=== PATIENT | male | born 2000 | race Caucasian/White ===

== ENCOUNTER 2020-05-04 16:39 | Emergency (ER) | payer SELFPAY ==
[2020-05-04 16:40] VITALS: BP 142/89; PULSE 83; RESP 18; TEMP 36.5; O2SAT 95; BMI 34.8
--- NOTE | 2020-05-04 16:43 | ECG_ITS ---
[facility] Test Date: 2020-05-04 Pat Name: Puma Falk Department: Room: Gender: Male Manager Cardiovascular: : 2000 Requested By: Meagan Galvez Order Number: [id number] Goodwin MD: Carmela Cortez M.D. Measurements Intervals [place] Rate: 80 P: 35 [place]: 165 QRS: -20 QRSD: 106 T: 32 QT: 361 QTc: 418 Interpretive Statements SINUS RHYTHM No previous ECG available for comparison Electronically Signed On 05-04-2020 17:21:33 CDT by Carmela Cortez M.D. [id number]
--- NOTE | 2020-05-04 16:43 | CTR_ITS ---
PROCEDURE INFORMATION: Exam: CT Head Without Contrast Exam date and time: 05/04/2020 4:49 PM Age: 20 years old Clinical indication: Condition or disease; Convulsions or seizures; Unspecified; Patient HX: New onset seizures; Additional info: [id number] onset [id number] TECHNIQUE: Imaging protocol: Computed tomography of the head without contrast. Radiation optimization: All CT scans at this facility use at least one of these dose optimization techniques: automated exposure control; mA and/or kV adjustment per patient size (includes targeted exams where dose is matched to clinical indication); or iterative reconstruction. COMPARISON: No relevant prior studies available. RADIATION DOSE METRICS: Total DLP (mGy-cm): 856.33 FINDINGS: Brain: Normal. No hemorrhage. Unremarkable white matter. No mass effect. Ventricles: Normal. No ventriculomegaly. Bones/joints: Unremarkable. No acute fracture. Sinuses: Visualized sinuses are unremarkable. No fluid levels. Mastoid air cells: Visualized mastoid air cells are well aerated. Soft tissues: Density in the right frontal scalp could represent a contusion or scar. CT/CT head wo con* [id number] IMPRESSION: No acute intracranial abnormality. Radiation Dose CTDIVOL = (mGy): DLP = 856.33 (mGy-cm)
--- NOTE | 2020-05-04 16:45 | XRR_ITS ---
PROCEDURE INFORMATION: Exam: XR Chest, 1 View Exam date and time: 05/04/2020 5:08 PM Age: 20 years old Clinical indication: Other: Seizure TECHNIQUE: Imaging protocol: XR of the chest Views: 1 view. COMPARISON: No relevant prior studies available. FINDINGS: Lungs: Unremarkable. No consolidation. Pleural space: Unremarkable. No pleural effusion. No pneumothorax. Heart/Mediastinum: Unremarkable. No cardiomegaly. Bones/joints: Unremarkable. XR/XR chest 1V portable [id number] IMPRESSION: No acute findings.
[2020-05-04 16:47] VITALS: BP 142/89; PULSE 85; RESP 16; O2SAT 97
[2020-05-04 17:00] VITALS: BP 145/99; PULSE 87; RESP 17; O2SAT 98
[2020-05-04 17:00] LABS: Basophils % 0.4 %; Eosinophils # 0.1 10^3/uL (0.0-0.8); Eosinophils % 0.6 %; Hematocrit 47.1 % (42.0-52.0); Hemoglobin 16.2 g/dL (11.7-16.6); Lymphocytes # 1.8 10^3/uL (1.5-6.5); Lymphocytes % 17.4 %; Mean Corpuscular HGB Conc 34.4 g/dL (30.0-36.0); Mean Corpuscular Hemoglobin 28.4 pg (28.0-34.0); Mean Corpuscular Volume 82.5 fL (80-94); Monocytes # 1.1 10^3/uL (0.2-0.9); Monocytes % 10.7 %; Neutrophils % 70.5 %; Nucleated Red Blood Cells % 0 %; Platelet Count 446 10^3/cmm (130-400); Red Blood Count 5.71 10^6/uL (4.1-5.3); Red Cell Distribution Width 12.2 % (12.1-15.1); White Blood Count 10.5 10^3/uL (4.5-13.0)
--- NOTE | 2020-05-04 17:08 | W.ED.SEIZURE ---
HPI - Seizure General: Chief Complaint: Seizure Stated Complaint: SEIZURE Time Seen by Provider: 05/04/20 16:40 Source: patient and EMS Mode of arrival: EMS Limitations: no limitations History of Present Illness: HPI Narrative: Puma is a 21-year-old male who comes in with the complaint of seizures. Patient is alert and oriented x4 at this time but is complaining of being sore and tired. Family witnessed 2 seizures at home, it is unknown how far apart they occurred. When EMS arrived they stated the patient was postictal. Patient denies any alcohol or drugs. Patient denies having any history of seizures in the past. There is a strong family history of seizures. There is a question of whether the patient had a [place] seizure last week but he is uncertain. Patient denies any injuries or ingestions. Other than feeling sore all over he has no focal complaints. Associated symptoms: Reports malaise; Deny chest pain, chills, confusion, diaphoresis, fever(s) or syncope Review of Systems Const: Reports: body aches, fatigue and malaise; Denies: fever(s), chills or diaphoresis Eyes: Denies: change in vision, blurry vision, blind spots, photophobia, eye discharge or eye redness ENMT: Denies: throat pain, odynophagia, hoarseness, swelling of lips/tongue, oral sores, ear or mastoid pain, ear discharge, change in hearing or nasal discharge Card: Denies: chest pain, palpitations, irregular heart rhythm, edema, lightheadedness, syncope, pre-syncope, dyspnea on exertion or orthopnea Resp: Denies: dyspnea, productive cough, non-productive cough, wheezing, hemoptysis or chest congestion GI: Denies: abdominal pain, nausea, vomiting, hematemesis, coffee ground emesis, heartburn, diarrhea, constipation, GI cramping, hematochezia or melena : Denies: flank pain, dysuria, urinary frequency, urinary urgency or hematuria Musc: Denies: neck pain, back pain, extremity pain, extremity swelling, joint pain, joint swelling, joint redness, joint warmth or joint stiffness Skin/Breast: Denies: rash, pruritus, erythema, skin tenderness or jaundice Neuro: Denies: headache(s), numbness in extremities, weakness in extremities, sensory changes, lack of coordination, difficulty walking, dizziness, vertigo, confusion, Slurred speech present or seizure-like activity Carl[place]/Lymph: Denies: easy bruising, easy bleeding, petechiae, purpura or enlarged lymph nodes All/Imm: Denies: urticaria, throat swelling, tongue swelling, facial swelling or acute wheezing PFSH ED PFSH: Medical History (Updated 05/04/20 @ 19:07 by Meagan Moscoso) No pertinent past medical history Surgical History (Updated 05/04/20 @ 17:08 by Meagan Moscoso) No pertinent past surgical history Family History (Updated 05/04/20 @ 17:12 by Meagan Moscoso) Other Seizures Physical Exam Const: COMMON NORMALS: no acute distress, patient oriented x3, no limitations, healthy appearing and well nourished GENERAL APPEARANCE: cooperative, well kempt and well developed HENMT: COMMON NORMALS: normocephalic, atraumatic, external ears normal, EAC's normal and Normal external nose present HEAD & SCALP: normal to inspection, normocephalic and atraumatic FACE & SINUS: normal facial exam and face symmetric NOSE: Normal external nose present and Normal nares present EXTERNAL EAR: Yes external ears normal EXTERNAL AUDITORY CANAL: EAC's normal MOUTH: Normal oral and palatal mucosa present, lip normal and tongue normal Eye: COMMON NORMALS: Equal, round and reactive pupils present and conjunctivae normal GENERAL EYE: appearance normal, both eyes and all related structures ALIGNMENT: Yes alignment normal PERIORBITAL: periorbital findings normal EYELID: eyelids normal CONJUNCTIVA: Yes conjunctivae normal SCLERA: sclerae normal PUPIL: Yes Equal, round and reactive pupils present Neck/C-Spine: COMMON NORMALS: full ROM, no lymphadenopathy, supple, no meningeal signs and no JVD GENERAL: Yes normal visual inspection and Yes trachea midline Chest: COMMONS NORMALS: normal inspection of the chest and normal palpation of entire chest wall Resp: COMMON NORMALS: normal respiratory effort, No retractions and No use of accessory muscles EFFORT & INSPECTION: Yes able to speak in complete sentences and Yes symmetric chest movement AUSCULTATION: no crackles, no rales, no rhonchi and no wheezes Cardio: COMMON NORMALS: no JVD, regular rate, regular rhythm, S1 normal heart sound present and S2 normal heart sound present RATE: regular rate RHYTHM: regular rhythm HEART SOUNDS: S1 normal heart sound present, S2 normal heart sound present, no click, no gallops, no murmurs, no rubs and abnormal split S2 GI: COMMON NORMALS: Soft to palpation and No hepatosplenomegaly present PALPATION: Yes Soft to palpation, No Tenderness to palpation present (GI), No Guarding due to palpation present (GI), No Rigid due to palpation, Yes No hepatosplenomegaly present, No Hernia present, No Palpable mass present and No Pulsatile mass present : COMMON NORMALS: Yes no CVA tenderness BLADDER/KIDNEY EXAM: Yes no CVA tenderness Back/Pelvis: COMMON NORMALS: no CVA tenderness, thoracic and lumbar spine normal to inspection, no thoracic nor lumbar tenderness and thoraco-lumbar ROM normal Extremity: COMMON NORMALS: normal to inspection, full ROM, capillary refill normal, no joint enlargement, no clubbing, cyanosis or edema and no calf tenderness Neuro: COMMON NORMALS: patient oriented x3, CN's II-XII intact bilaterally, moves all extremities, no focal motor deficits and no sensory deficits noted MENINGEAL SIGNS: Yes no meningeal signs SPEECH: speech normal Psych: COMMON NORMALS: mental status grossly normal, Normal thought process present, cooperative, normal affect, speech normal and activity/motor behavior normal APPEARANCE: Yes well kempt SPEECH: Yes normal speech THOUGHT PROCESS: Normal thought process present Skin: COMMON NORMALS: no rashes or lesions noted, turgor normal, no jaundice, no petechiae and no mottling GENERAL SKIN EXAM: no rashes or lesions noted and turgor normal Course Vital Signs: Vital signs: Vital Signs Temperature 97.7 F 05/04/20 16:40 Pulse Rate 77 05/04/20 19:00 Respiratory Rate 16 05/04/20 19:00 Blood Pressure 117/81 05/04/20 19:00 Pulse Oximetry 98 05/04/20 19:00 MDM - Seizure MDM Narrative: Medical decision making narrative: Puma is a 20-year-old male who comes in with new onset seizures. 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 He is admitting that he has been using recently. I see no other sign or symptom to cause the seizures at this time. I have told him though that he needs to follow-up with Dr. Springer and further evaluation will be needed. He understands. He agrees to take the Keppra as I have prescribed that he was loaded with IV Keppra here. At this time he is ready to go home. I did review with him seizure precautions and he understands these. He will follow-up with Dr. Springer and his regular doctor. Lab Data: Labs: Lab Results 05/04/20 05/04/20 05/04/20 Range/Units 16:41 16:41 16:41 WBC 10.5 (4.5-13.0) 10^3/ uL RBC 5.71 H (4.1-5.3) 10^6/u L Hgb 16.2 (11.7-16.6) g/dL Hct 47.1 (42.0-52.0) % MCV 82.5 (80-94) fL MCH 28.4 (28.0-34.0) pg MCHC 34.4 (30.0-36.0) g/dL RDW 12.2 (12.1-15.1) % Plt Count 446 H (130-400) 10^3/c mm MPV 10.0 (7.4-10.4) fL Neut % (Auto) 70.5 % Lymph % (Auto) 17.4 % Mcdowell % (Auto) 10.7 % Eos % (Auto) 0.6 % Baso % (Auto) 0.4 % Neut # (Auto) 7.40 (1.8-8.0) 10^3/u L Lymph # (Auto) 1.8 (1.5-6.5) 10^3/u L Mcdowell # (Auto) 1.1 H (0.2-0.9) 10^3/u L Eos # (Auto) 0.1 (0.0-0.8) 10^3/u L Baso # (Auto) 0.0 (0.0-0.1) 10^3/u L Nucleated RBC % (a uto) 0 % Nucleated RBCs # 0.0 /100WBC PT 12.40 (10.5-13.3) SECO NDS INR 0.90 (0.8-1.2) Sodium 138 (136-145) mmol/L Potassium 3.4 L (3.5-5.1) mmol/L Chloride 99 (98-107) mmol/L Carbon Dioxide 25 (22-29) mmol/L Anion Gap 17.4 (5-19) BUN 8 (6-20) mg/dL Creatinine 0.8 (0.7-1.2) mg/dL GFR Calculation 123.2 (90-130) mL/min Glucose 92 (65-115) mg/dL Calculated Osmolal ity 282 L (285-295) mOsm/k g Calcium 11.0 H (8.5-10.5) mg/dL Magnesium 2.1 (1.7-2.3) mg/dL Total Bilirubin 0.6 (0.15-1.2) mg/dL AST 18 (0-40) U/L ALT 21 (0-41) U/L Alkaline Phosphata se 128 (40-130) IU/L Creatine Kinase 151 (39-308) U/L Total Protein 8.6 (6.6-8.7) g/dL Albumin 5.4 H (3.5-5.2) g/dL Globulin 3.2 (1.3-4.6) g/dL Urine Color (Yellow) Urine Appearance (CLEAR) Urine pH (5-7) Ur Specific Gravit y (1.005-1.030) Urine Protein (Negative) Urine Glucose (UA) (Normal) Urine Ketones (Negative) Urine Blood (Negative) Urine Nitrate (Negative) Urine Bilirubin (NEGATIVE) Urine Urobilinogen (Negative) mg/dL Ur Leukocyte Melvi ase (Negative) Urine RBC (0-2) /hpf Urine WBC (0-5) /hpf Ur Squamous Epith Cells (0-5) Amorphous Sediment Urine Bacteria (NONE) Urine Mucus Urine Opiates Scre en (Negative) ng/mL Ur Barbiturates Sc reen (Negative) ng/mL Ur Phencyclidine S crn (Negative) ng/mL Ur Amphetamines Sc reen (Negative) ng/mL U Benzodiazepines Scrn (Negative) ng/mL Urine Cocaine Scre en (Negative) ng/mL U Marijuana (THC) Screen (Negative) ng/mL Ethyl Alcohol < 10 (0-10) mg/dL 05/04/20 05/04/20 Range/Units 18:04 18:04 WBC (4.5-13.0) 10^3/ uL RBC (4.1-5.3) 10^6/u L Hgb (11.7-16.6) g/dL Hct (42.0-52.0) % MCV (80-94) fL MCH (28.0-34.0) pg MCHC (30.0-36.0) g/dL RDW (12.1-15.1) % Plt Count (130-400) 10^3/c mm MPV (7.4-10.4) fL Neut % (Auto) % Lymph % (Auto) % Mcdowell % (Auto) % Eos % (Auto) % Baso % (Auto) % Neut # (Auto) (1.8-8.0) 10^3/u L Lymph # (Auto) (1.5-6.5) 10^3/u L Mcdowell # (Auto) (0.2-0.9) 10^3/u L Eos # (Auto) (0.0-0.8) 10^3/u L Baso # (Auto) (0.0-0.1) 10^3/u L Nucleated RBC % (a uto) % Nucleated RBCs # /100WBC PT (10.5-13.3) SECO NDS INR (0.8-1.2) Sodium (136-145) mmol/L Potassium (3.5-5.1) mmol/L Chloride (98-107) mmol/L Carbon Dioxide (22-29) mmol/L Anion Gap (5-19) BUN (6-20) mg/dL Creatinine (0.7-1.2) mg/dL GFR Calculation (90-130) mL/min Glucose (65-115) mg/dL Calculated Osmolal ity (285-295) mOsm/k g Calcium (8.5-10.5) mg/dL Magnesium (1.7-2.3) mg/dL Total Bilirubin (0.15-1.2) mg/dL AST (0-40) U/L ALT (0-41) U/L Alkaline Phosphata se (40-130) IU/L Creatine Kinase (39-308) U/L Total Protein (6.6-8.7) g/dL Albumin (3.5-5.2) g/dL Globulin (1.3-4.6) g/dL Urine Color Dark yellow (Yellow) Urine Appearance Hazy A (CLEAR) Urine pH 5 (5-7) Ur Specific Gravit y 1.025 (1.005-1.030) Urine Protein 1+ H (Negative) Urine Glucose (UA) Norm (Normal) Urine Ketones 1+ H (Negative) Urine Blood Neg (Negative) Urine Nitrate Negative (Negative) Urine Bilirubin 1+ H (NEGATIVE) Urine Urobilinogen 1 H (Negative) mg/dL Ur Leukocyte Melvi ase 1+ H (Negative) Urine RBC 0-4 H (0-2) /hpf Urine WBC 55-80 H (0-5) /hpf Ur Squamous Epith Cells 0-4 H (0-5) Amorphous Sediment Not Reportable Urine Bacteria 2+ H (NONE) Urine Mucus 4+ Urine Opiates Scre en Negative (Negative) ng/mL Ur Barbiturates Sc reen Negative (Negative) ng/mL Ur Phencyclidine S crn Negative (Negative) ng/mL Ur Amphetamines Sc reen Positive H (Negative) ng/mL U Benzodiazepines Scrn Negative (Negative) ng/mL Urine Cocaine Scre en Negative (Negative) ng/mL U Marijuana (THC) Screen Positive H (Negative) ng/mL Ethyl Alcohol (0-10) mg/dL Imaging Data^: CXR: My impression: No acute cardiopulmonary findings. CT Head: Radiologist's impression: [place] [address] CT Scan Report Signed Patient: Puma Falk Unit #: [id number] : 2000 Age/Sex: 20 / M ADM Date: 05/04/20 Loc: ER Room/Bed: Attending Dr: Ordering Provider/Ordering MD: Meagan Moscoso DO Date of Service: 05/04/20 Procedure(s): CT head wo con* [id number] Accession Number(s): [id number] Report Number: [id number] PROCEDURE INFORMATION: Exam: CT Head Without Contrast Exam date and time: 05/04/2020 4:49 PM Age: 20 years old Clinical indication: Condition or disease; Convulsions or seizures; Unspecified; Patient HX: New onset seizures; Additional info: [id number] onset TECHNIQUE: Imaging protocol: Computed tomography of the head without contrast. Radiation optimization: All CT scans at this facility use at least one of these dose optimization techniques: automated exposure control; mA and/or kV adjustment per patient size (includes targeted exams where dose is matched to clinical indication); or iterative reconstruction. COMPARISON: No relevant prior studies available. RADIATION DOSE METRICS: Total DLP (mGy-cm): 856.33 FINDINGS: Brain: Normal. No hemorrhage. Unremarkable white matter. No mass effect. Ventricles: Normal. No ventriculomegaly. Bones/joints: Unremarkable. No acute fracture. Sinuses: Visualized sinuses are unremarkable. No fluid levels. Mastoid air cells: Visualized mastoid air cells are well aerated. Soft tissues: Density in the right frontal scalp could represent a contusion or scar. CT/CT head wo con* [id number] IMPRESSION: No acute intracranial abnormality. Radiation Dose CTDIVOL = (mGy): DLP = 856.33 (mGy-cm) Dictated By: George Trevino Signed By: George Trevino Signed Date/Time: 05/04/201714 DD/ 12 EKG Data^: EKG 1: Attestation: I personally reviewed and interpreted this EKG as follows: EKG interpretation date: 05/04/20 EKG interpretation time: 16:47 Interpretation: Normal sinus rhythm at 80 beats a minute, nonspecific interventricular conduction delay. Discharge Plan Discharge Patient Disposition: Home Clinical Impression: New onset seizure Condition: Stable Prescriptions: New Keppra 500 mg tablet 500 mg PO BID 14 Days Qty: 28 RF: 0 Discharge Orders: Discharge Order (Routine); Ordered 05/04/20 Ordered By: Meagan Moscoso Referrals: Sheeba Springer MD [Physician] - 1-3 days Discharge Diet: Advance as tolerated Discharge Activity: Increase activity as tolerated Patient Instructions: New-Onset Seizure in Adults (ED) Activity Restrictions/Additional Instructions: Please return to the ER immediately for any of the signs or symptoms listed on your discharge instruction sheets, worsening/changing of your symptoms, you are not getting better as quickly as expected, or for ANY other cause or concerns. No driving, no working at heights, no tub baths, no swimming alone or anything else that would put you at risk should you have another seizure. Abstain from all alcohol, drugs or anything else that would put you at risk of another seizure. Discharge Date/Time: 05/04/20 19:25 Coding Level of Care Code ED Enrollment Processor for Chg Fwd Exam Comprehensive
[2020-05-04] MEDS: sodium chloride 0.9% 1,000 ML 999 ML IV ×2 (17:09→17:41)
[2020-05-04] MEDS: ondansetron 2 mg/ML SDV 2 mL 4 MG IVP (17:10)
[2020-05-04] MEDS: acetaminophen 500 mg Tablet 1000 MG PO (17:10)
[2020-05-04 17:14] LABS: Alanine Aminotransferase 21 U/L (0-41); Albumin Level 5.4 g/dL (3.5-5.2); Alkaline Phosphatase 128 IU/L (40-130); Anion Gap 17.4 (5-19); Aspartate Amino Transferase 18 U/L (0-40); Blood Urea Nitrogen 8 mg/dL (6-20); Carbon Dioxide 25 mmol/L (22-29); Chloride 99 mmol/L (98-107); Creatine Phosphokinase 151 U/L (39-308); Globulin 3.2 g/dL (1.3-4.6); Glomerular Filtration Rate 123.2 mL/min (90-130); Glucose 92 mg/dL (65-115); Magnesium 2.1 mg/dL (1.7-2.3); Osmolality Calculated 282 mOsm/kg (285-295); Potassium 3.4 mmol/L (3.5-5.1); Sodium 138 mmol/L (136-145); Total Bilirubin 0.6 mg/dL (0.15-1.2); Total Protein 8.6 g/dL (6.6-8.7)
[2020-05-04 17:25] LABS: Alcohol Level < 10 mg/dL (0-10)
[2020-05-04] MEDS: potassium chloride ER 10 mEq Tablet 40 MEQ PO (17:35)
[2020-05-04 18:00] VITALS: BP 121/70; PULSE 67; RESP 17; O2SAT 99
[2020-05-04 18:50] LABS: Glucose Urine UA Norm (Normal); Ketones Urine 1+ (Negative); Protein Urine 1+ (Negative); Specific Gravity, Urine 1.025 (1.005-1.030); Urine Appearance Hazy (CLEAR); Urine Color Dark Yellow (Yellow); pH Urine 5 (5-7)
[2020-05-04 18:51] LABS: Add Urine Microscopic? YES; Bilirubin Urine 1+ (NEGATIVE); Blood Urine Neg (Negative); Leukocyte Esterase Urine 1+ (Negative); Nitrate Urine Negative (Negative); Urobilinogen Urine 1 mg/dL (Negative)
[2020-05-04 18:53] LABS: Amphetamines Screen Urine Positive (Negative); Barbiturates Screen Urine Negative (Negative); Benzodiazepines Screen Urine Negative (Negative); Cocaine Screen Urine Negative (Negative); Opiate Screen Urine Negative (Negative); PCP Screen Urine Negative (Negative); THC Screen Urine Positive (Negative)
[2020-05-04 18:56] LABS: Bacteria Urine 2+; RBC Urine 0-4 /hpf (0-2); Squamous Epithelial Cell Urine 0-4 (0-5); WBC Urine 55-80 /hpf (0-5)
[2020-05-04 18:57] LABS: Add Urine Culture? Yes; Mucus Urine 4+
[2020-05-04 19:00] VITALS: BP 117/81; PULSE 77; RESP 16; O2SAT 98
== END 2020-05-04 19:25 | disposition home or self-care (01) ==
PROVIDERS: Emergency Provider Emergency Medicine
DX: G40.89 Other seizures (principal)
CPT/HCPCS: 12345; 70450; 71045; 80053; 80306; 80307; 81001; 81003; 82550; 83735; 85025; 85610; 87077; 87086; 87186; 93005; 96360; 96361; 96365; 96374; 96375; 99284; J1953; J2405; J7030